=== PATIENT | male | born 1995 | race Caucasian/White ===

== ENCOUNTER 2021-04-01 11:59 | Emergency (ER) | payer MEDICAID, SELFPAY ==
[~2021-04-01] VITALS: Ht 182.9 cm; Wt 145.3 kg
[~2021-04-01 11:59] MED LIST: HYDR-3715 PO; IBUP200C25 PO; TYLE325T5 PO
[2021-04-01] MEDS ORDERED: FLUORESCEIN OPHTH 1 MG STRIP OS ONE (13:20)
[2021-04-01] MEDS ORDERED: PROPARACAINE 0.5% OPHTH SOL 15ML OS ONE (13:20)
[2021-04-01] MEDS ORDERED: OCUF0.25 OP (14:26)
[2021-04-01 15:00] VITALS: BP 130/80
== END 2021-04-01 15:20 | disposition home or self-care (01) ==
LOC: M ED 11:59
DX: S05.02XA Injury of conjunctiva and corneal abrasion without foreign body, left eye, initial encounter (principal); F17.200 Nicotine dependence, unspecified, uncomplicated; Z91.030 Bee allergy status; Y92.9 Unspecified place or not applicable; Y93.9 Activity, unspecified; Y99.9 Unspecified external cause status